=== PATIENT | female | born 1990 | race Caucasian/White ===

== ENCOUNTER 2020-05-28 07:51 | Inpatient (IN) | payer BC ==
[~2020-05-28 07:51] MED LIST: Bupivacaine 0.25% 10 ML SDV ONE
[2020-05-28] MEDS ORDERED: Sodium Chloride 0.9% 10 ML Syringe FLUSH PRN (08:07)
[2020-05-28] MEDS ORDERED: Nalbuphine 10 MG/ML Syringe IVPUSH PRN (08:07)
[2020-05-28] MEDS ORDERED: Oxytocin/Lactated Ringers 10 UNIT/1,000 ML BAG IV SCH ×2 (08:15)
[2020-05-28] MEDS ORDERED: ePHEDrine 50 MG/ML SDV IVPUSH PRN (09:55)
[2020-05-28] MEDS ORDERED: Ondansetron 4 MG/2 ML SDV IVPUSH PRN (09:55)
[2020-05-28] MEDS ORDERED: fentaNYL 100 MCG/2 ML SDV EPIDUR PRN (09:55)
[2020-05-28] MEDS ORDERED: Bupivacaine/fentaNYL/NS 100 ML Bag EPIDUR SCH (10:00)
--- NOTE | 2020-05-28 10:03 | PCM.PREANE ---
Preanesthetic Assessment - Procedure Proposed Procedure: MARYELLEN - Anesthesia/Transfusion/Family Hx Anesthesia History: Prior Anesthesia Without Reaction Family History of Anesthesia Reaction: No Transfusion History: No Prior Transfusion(s) Intubation History: Unknown - Review of Systems General: No Symptoms Pulmonary: No Symptoms Cardiovascular: No Symptoms Gastrointestinal: No Symptoms (GERD), Constipation, Nausea Neurological: No Symptoms Other: Reports: None - Physical Assessment NPO Status Date: 05/28/20 NPO Status Time: 04:30 Vital Signs: HR: 85 Sat: 97% Resp: 16 B/P: 124/79 Temp:36.9 Height: 1.7 m Weight: 88.451 kg ASA Class: 2 Mental Status: Alert & Oriented x3 Airway Class: Mallampati = 2 Dentition: Reports: Normal Dentition, Caries Thyro-Mental Finger Breadths: 3 Mouth Opening Finger Breadths: 3 ROM/Head Extension: Full Lungs: Clear to Auscultation, Normal Respiratory Effort Cardiovascular: Regular Rate, Regular Rhythm, No Murmurs - Lab Values: Laboratory Last Values WBC 10.82 K/mm3 (3.98-10.04) H 05/28/20 08:20 RBC 3.84 M/mm3 (3.98-5.22) L 05/28/20 08:20 Hgb 11.1 gm/dl (11.2-15.7) L 05/28/20 08:20 Hct 34.9 % (34.1-44.9) 05/28/20 08:20 MCV 90.9 fl (79.4-94.8) 05/28/20 08:20 MCH 28.9 pg (25.6-32.2) 05/28/20 08:20 MCHC 31.8 g/dl (32.2-35.5) L 05/28/20 08:20 RDW Std Deviation 43.8 fL (36.4-46.3) 05/28/20 08:20 Plt Count 295 K/mm3 (182-369) 05/28/20 08:20 MPV 11.8 fl (9.4-12.3) 05/28/20 08:20 Neut % (Auto) 74.2 % (34.0-71.1) H 05/28/20 08:20 Lymph % (Auto) 18.1 % (19.3-51.7) L 05/28/20 08:20 [place] % (Auto) 6.4 % (4.7-12.5) 05/28/20 08:20 Eos % (Auto) 0.8 (0.7-5.8) 05/28/20 08:20 Baso % (Auto) 0.2 % (0.1-1.2) 05/28/20 08:20 Neut # (Auto) 8.03 K/mm3 (1.56-6.13) H 05/28/20 08:20 Lymph # (Auto) 1.96 K/mm3 (1.18-3.74) 05/28/20 08:20 [place] # (Auto) 0.69 K/mm3 (0.24-0.36) H 05/28/20 08:20 Eos # (Auto) 0.09 K/mm3 (0.04-0.36) 05/28/20 08:20 Baso # (Auto) 0.02 K/mm3 (0.01-0.08) 05/28/20 08:20 Above labs reviewed and noted and within acceptable ranges to proceed with epidural if desired. - Allergies Allergies/Adverse Reactions: Allergies Allergy/AdvReac Type Severity Reaction Status Date / Time No Known Allergies Allergy Verified 05/28/20 09:22 - Anesthesia Plan Pre-Op Medication Ordered: None - Acknowledgements Anesthesia Type Planned: Epidural Pt an Appropriate Candidate for the Planned Anesthesia: Yes Alternatives and Risks of Anesthesia Discussed w Pt/Guardian: Yes Pt/Guardian Understands and Agrees with Anesthesia Plan: Yes PreAnesthesia Questionnaire - HOME MEDS Home Medications: Home Meds Ascorbate Calcium [Vitamin C] 500 mg PO DAILY 05/28/20 [History] Docusate Sodium [Colace] 100 mg PO DAILY 05/28/20 [History] Ferrous Sulfate [Iron] 325 mg PO DAILY 05/28/20 [History] L.acidoph,Paracasei, B.lactis [Probiotic] 1 each PO DAILY 05/28/20 [History] Loratadine 10 mg PO DAILY 05/28/20 [History] Omeprazole 20 mg PO DAILY 05/28/20 [History] Pnv No.95/Ferrous Fum/Folic AC [ Tablet] 1 tab PO DAILY 05/28/20 [History] - CURRENT (IN HOUSE) MEDS Current Meds: Current Medications Ephedrine Sulfate (Ephedrine Sulfate) 5 mg IVPUSH ASDIRECTED PRN PRN Reason: Hypotension Fentanyl (Sublimaze) 100 mcg EPIDUR Q3H PRN PRN Reason: Pain Fentanyl/Bupivacaine HCl (Fentanyl/Bupivacaine/Ns 2 Mcg-0.125% 100 Ml) 100 ml EPIDUR ASDIRECTED [place] Oxytocin/Lactated Ringer's (Pitocin In Lr 10 Units/1,000 Ml) 10 unit in 1,000 mls @ 12 mls/hr IV TITRATE [place]; Protocol Oxytocin/Lactated Ringer's (Pitocin In Lr 10 Units/1,000 Ml) 10 unit in 1,000 mls @ 100 mls/hr IV .CONTINUOUS [place] Lactated Ringer's (Ringers, Lactated) 1,000 mls @ 100 mls/hr IV ASDIRECTED [place] Miscellaneous Medication (Phenylephrine 1 Mg/10 Ml-Ns) 0 mg IVPUSH ONETIME ONE Stop: 05/28/20 09:56 Nalbuphine HCl (Nubain) 10 mg IVPUSH Q2H PRN PRN Reason: Pain Ondansetron HCl (Zofran) 4 mg IVPUSH ONETIME PRN PRN Reason: Nausea/Vomiting Sodium Chloride (Saline Flush) 10 ml FLUSH ASDIRECTED PRN PRN Reason: Keep Vein Open
[2020-05-28] MEDS: Lactated Ringers 1,000 ML IV SCH ×3 (11:15→15:05)
--- NOTE | 2020-05-28 11:50 | PCM.LDHP ---
L&D History of Present Illness - General Date of Service: 05/28/20 Admit Problem/Dx: Patient Status Order with Admit Dx/Problem 05/28/20 08:07 Patient Status [ADT] Routine Admission Diagnosis/Problem Admission Diagnosis/Problem 05/28/20 11:35 Emily is a 30-year-old 1 para 0 white female who is admitted on 05/28/2020 at 40-4/7 weeks gestational age for elective induction of labor. Source of Information: Patient History Limitations: Reports: No Limitations - History of Present Illness Introduction:: Emily is a 30-year-old 1 para 0 white female who is admitted on 05/28/2020 at 40-4/7 weeks gestational age for elective induction of labor. Procedure, risk, benefits, alternative care including allowing for natural onset of labor are discussed with patient. She appears to understand and wishes to proceed. In labor and delivery. Cervix is found to be 2 cm plus, 90% effaced, -1 station, mid position, vertex presentation, soft. AROM is accomplished with resultant clear amniotic fluid. heart tones are reassuring. Contractions are occurring every 3 to 5 minutes and are mild in nature. CASE BRIEFER history: 1 para 0. Last menstrual period was on 08/18/2019. Her CLARY of 05/24/2020 was set by an early ultrasound. This ultrasound was done elsewhere. Patient had menarche at approximately age 13. Cycles q. 28 days. No control at the time of conception. LMP 08/18/2019 gives a due date of 05/24/2020. course: Patient transferred her care to our clinic at approximately 37- 4/7 weeks gestational age. Been seen at [facility] prior to that time. Her vital signs have been stable. Her weight gain by her history was from 193 pounds up to 196 pounds. Fundal height growth has been appropriate. Patient has had an unremarkable course. She is desiring epidural for labor pain control. Laboratory testing shows blood to be O+ with a negative antibody screen. Her hemoglobin on 05/04/2020 was 13.3 g/dL and platelets are 319,000. She is rubella immune. RPR is nonreactive. Hepatitis B surface antigen is negative. Chlamydia and gonorrhea were both negative. Her 1 hour glucose tolerance test was normal at 105. Her last hemoglobin was 11.9 g/dL. Her group B strep screen was negative. Had back pain and constipation in . She had a flu vaccination on 05/01/[address] [facility]. She plans to breast- feed. Her Tdap was performed on 04/20/2020. Group B strep screen is negative. Patient is rubella immune. Allergies: None Medications: 1. Vitamin C 500 mg/day 2. Ferrous sulfate 325 mg/day 3. Omeprazole 20 mg p.o. daily as needed for nausea 4. vitamins daily 5. Probiotic oral capsules daily 6. Loratadine 10 mg p.o. daily as needed for allergies 7. Colace 100 mg p.o. every other day for constipation Past medical history: Unremarkable Past surgical history: 1. Laparoscopic cholecystectomy 2. Rhinoplasty 3. [place] teeth extraction Family history: Mother is alive and well. Father is alive but had a stroke 10 years ago secondary to an accident. She has 2 sisters that are alive and well. One brother is alive and well. Maternal grandmother is secondary to motor vehicle accident but did also have a history of breast cancer at an older age. Maternal grandfather is deceasedcause unknown. Paternal grandmother is alive with diabetes mellitus. Paternal grandfather is secondary to liver cancer. No bleeding, clotting, , asthma or anesthesia problems noted in the family. Social history: Patient is . is Ricardo. They live in [place], [place]. She does not use any significant also alcohol, drugs or tobacco. Review of systems: In general patient has no complaints. He has been active. Skin: Negative Lungs: No infectious symptoms or shortness of breath Cardiovascular: No chest pain or exercise intolerance Breasts: No lumps, changes in size, pain, dimpling, discharge or axillary or supraclavicular concerns. Changes associated with . GI: Negative : Body habitus changes associated with . Musculoskeletal: Negative Neurological: Negative Sickle exam: In general the patient is well-developed, well-nourished, pleasant female of stated age in no acute distress On last evaluation clinic her blood pressure was 110/70. Weight was 196 pounds. heart rate is 154. Fundal height was 40 cm. Skin is warm dry without lesions. HEENT, neck and back within normal limits. Lungs are clear with good breath sounds in all lung agustin. Cardiovascular exam shows regular and rhythm without murmurs. Abdomen is gravid with last fundal height in clinic at 40 cm. Baby in vertex presentation by Cipriano maneuvers. Genital per digital exam as as above.. Extremities and neurological exam are grossly within normal limits. No edema noted. - Related Data Allergies/Adverse Reactions: Allergies Allergy/AdvReac Type Severity Reaction Status Date / Time No Known Allergies Allergy Verified 05/28/20 09:22 Home Medications: Home Meds Ascorbate Calcium [Vitamin C] 500 mg PO DAILY 05/28/20 [History] Docusate Sodium [Colace] 100 mg PO DAILY 05/28/20 [History] Ferrous Sulfate [Iron] 325 mg PO DAILY 05/28/20 [History] L.acidoph,Paracasei, B.lactis [Probiotic] 1 each PO DAILY 05/28/20 [History] Loratadine 10 mg PO DAILY 05/28/20 [History] Omeprazole 20 mg PO DAILY 05/28/20 [History] Pnv No.95/Ferrous Fum/Folic AC [ Tablet] 1 tab PO DAILY 05/28/20 [History] Past Medical History Gastrointestinal History: Reports: GERD CASE BRIEFER History: Reports: - Past Surgical History GI Surgical History: Reports: None Social & Family History - Family History Family Medical History: Noncontributory - Tobacco Use Tobacco Use Status *Q: Never Tobacco User - Caffeine Use Caffeine Use: Reports: None - Recreational Drug Use Recreational Drug Use: No H&P Review of Systems - Review of Systems: Review Of Systems: See Below L&D Exam - Exam Exam: See Below - Vital Signs Vital Signs: Last Vital Signs Temp 36.9 C 05/28/20 08:17 Pulse 85 05/28/20 08:17 Resp 16 05/28/20 08:17 BP 124/79 05/28/20 08:17 Pulse Ox 97 05/28/20 08:17 Weight: 88.451 kg - Patient Data Lab Results Last 24 hrs: Laboratory Results - last 24 hr 05/28/20 05/28/20 Range/Units 08:20 08:45 WBC 10.82 H (3.98-10.04) K/mm3 RBC 3.84 L (3.98-5.22) M/mm3 Hgb 11.1 L (11.2-15.7) gm/dl Hct 34.9 (34.1-44.9) % MCV 90.9 (79.4-94.8) fl MCH 28.9 (25.6-32.2) pg MCHC 31.8 L (32.2-35.5) g/dl RDW Std Deviation 43.8 (36.4-46.3) fL Plt Count 295 (182-369) K/mm3 MPV 11.8 (9.4-12.3) fl Neut % (Auto) 74.2 H (34.0-71.1) % Lymph % (Auto) 18.1 L (19.3-51.7) % [place] % (Auto) 6.4 (4.7-12.5) % Eos % (Auto) 0.8 (0.7-5.8) Baso % (Auto) 0.2 (0.1-1.2) % Neut # (Auto) 8.03 H (1.56-6.13) K/mm3 Lymph # (Auto) 1.96 (1.18-3.74) K/mm3 [place] # (Auto) 0.69 H (0.24-0.36) K/mm3 Eos # (Auto) 0.09 (0.04-0.36) K/mm3 Baso # (Auto) 0.02 (0.01-0.08) K/mm3 SARS-CoV-2 RNA (CALLIE) Negative (NEGATIVE) Result Diagrams: 05/28/20 08:20 Problem List Initiated/Reviewed/Updated: Yes Orders Last 24hrs: Active Orders 24 hr Category Date Time Status Patient Status [ADT] Routine ADT 05/28/20 08:07 Active Activity as Tolerated [RC] PFP Care 05/28/20 08:07 Active Communication Order [RC] ASDIRECTED Care 05/28/20 08:07 Active Heart Tones [RC] ASDIRECTED Care 05/28/20 08:08 Active Non Stress Test [RC] PER UNIT ROUTINE Care 05/28/20 08:07 Active Notify Provider [RC] ASDIRECTED Care 05/28/20 09:55 Active Notify Provider [RC] PFP Care 05/28/20 08:07 Active Notify Provider [RC] PRN Care 05/28/20 08:07 Active Peripheral IV Care [RC] . DIRECTED Care 05/28/20 08:08 Active Pulse Oximetry [RC] ASDIRECTED Care 05/28/20 09:55 Active Pump Management, Intrathecal [RC] ASDIRECTED Care 05/28/20 08:09 Active Vital Signs [RC] PER UNIT ROUTINE Care 05/28/20 08:07 Active Regular Diet [DIET] Diet 05/28/20 Breakfast Active BLOOD BANK HOLD SPECIMEN [BBK] Stat Lab 05/28/20 08:07 Ordered RAPID PLASMA REAGIN,RPR [CHEM] Routine Lab 05/28/20 08:07 Ordered Bupivacaine/fentaNYL/NS [fentaNYL/Bupivacaine/NS 2 MCG- Med 05/28/20 10:00 Active 0.125% 100 ML] 100 ml EPIDUR ASDIRECTED Lactated Ringers [Ringers, Lactated] 1,000 ml Med 05/28/20 08:15 Active IV ASDIRECTED Nalbuphine [Nubain] Med 05/28/20 08:07 Active 10 mg IVPUSH Q2H PRN Ondansetron [Zofran] Med 05/28/20 09:55 Active 4 mg IVPUSH ONETIME PRN Oxytocin/Lactated Ringers [Pitocin in LR 10 Units/1,000 Med 05/28/20 08:15 Active ML] 10 unit in 1,000 ml IV .CONTINUOUS Oxytocin/Lactated Ringers [Pitocin in LR 10 Units/1,000 Med 05/28/20 08:15 A ctive ML] 10 unit in 1,000 ml IV TITRATE Sodium Chloride 0.9% [Saline Flush] Med 05/28/20 08:07 Active 10 ml FLUSH ASDIRECTED PRN ePHEDrine [ePHEDrine sulfate] Med 05/28/20 09:55 Active 5 mg IVPUSH ASDIRECTED PRN fentaNYL [Sublimaze] Med 05/28/20 09:55 Active 100 mcg EPIDUR Q3H PRN Electronic Heart Tones Ext w TOCO [WOMSER] Oth 05/28/20 08:07 Ordered Routine Electronic Heart Tones Internal [WOMSER] Per Unit Oth 05/28/20 08:07 Ordered Routine Peripheral IV Insertion Adult [OM.PC] Routine Oth 05/28/20 08:07 Ordered Resuscitation Status Routine Resus Stat 05/28/20 08:07 Ordered Medication Orders Ephedrine Sulfate (Ephedrine Sulfate) 5 mg IVPUSH ASDIRECTED PRN PRN Reason: Hypotension Fentanyl (Sublimaze) 100 mcg EPIDUR Q3H PRN PRN Reason: Pain Fentanyl/Bupivacaine HCl (Fentanyl/Bupivacaine/Ns 2 Mcg-0.125% 100 Ml) 100 ml EPIDUR ASDIRECTED [place] Oxytocin/Lactated Ringer's (Pitocin In Lr 10 Units/1,000 Ml) 10 unit in 1,000 mls @ 12 mls/hr IV TITRATE [place]; Protocol Oxytocin/Lactated Ringer's (Pitocin In Lr 10 Units/1,000 Ml) 10 unit in 1,000 mls @ 100 mls/hr IV .CONTINUOUS [place] Lactated Ringer's (Ringers, Lactated) 1,000 mls @ 100 mls/hr IV ASDIRECTED [place] Last Admin: 05/28/20 11:15 Dose: 100 mls/hr Documented by: BEHZAD Nalbuphine HCl (Nubain) 10 mg IVPUSH Q2H PRN PRN Reason: Pain Ondansetron HCl (Zofran) 4 mg IVPUSH ONETIME PRN PRN Reason: Nausea/Vomiting Sodium Chloride (Saline Flush) 10 ml FLUSH ASDIRECTED PRN PRN Reason: Keep Vein Open Assessment/Plan Comment:: 1. 40-4/7-week intrauterine with an CLARY of 05/24/2020 admitted for induction of labor 2. Group B strep negative. 3. Patient desires epidural in labor and delivery for analgesia 4. Patient plans to breast-feed 5. Rubella titer shows immunity 6. Patient received her Tdap on 04/20/2020 7. Relatively low risk Plan: 1. Artificial rupture of membranes induction of labor. Pitocin augmentation as indicated 2. Epidural as needed for analgesia 3. Anticipate normal spontaneous vaginal delivery 4. Routine labor care.
[2020-05-28] MEDS ORDERED: Lidocaine 1% 50 ML MDV ONE (21:34)
--- NOTE | 2020-05-28 22:06 | PCM.SN.2 ---
- Free Text/Narrative Note: Delivery note: Emily is a 30-year-old 1 para 0 white female who is admitted on 05/28/2020 at 40-4/7 weeks gestational age for elective induction of labor. Procedure, risk, benefits, alternative care including allowing for natural onset of labor are discussed with patient. She appears to understand and wishes to proceed. In labor and delivery. Cervix is found to be 2 cm plus, 90% effaced, -1 station, mid position, vertex presentation, soft. AROM is accomplished with resultant clear amniotic fluid. heart tones are reassuring. Contractions are occurring every 3 to 5 minutes and are mild in nature. Patient was monitored for 2 to 3 hours after which because of contractions are less than optimal, Pitocin was started and increased to a maximum of 4 milliunits/mL. With this she developed a strong contraction pattern. She made steady progress to complete cervical dilation by approximately 1970 hours on 05/28/2020. She had an epidural in place for labor analgesia. At 2126 hrs. she delivered a viable, cedillo, female infant with Apgars of 6 and 9, a weight of 4160 g (9 pounds 2.7 ounces), a length of 20.0 inches in a direct occiput anterior position. Baby was placed on mom's abdomen, nose and mouth were bulb suction. The cord is allowed to pulsate for approximately 3 minutes and was clamped x2 and cut by the baby's father. Dose was increased to 500 cc an hour to facilitate increase in uterine tone and decrease likelihood of bleeding. Patient was noted to have a bisulcus tear with 1/3 degree laceration. Third- degree laceration was repaired independently of the remainder of the laceration and was done so with 3-0 Monocryl suture reapproximating the ends of the anal sphincter muscle and reapproximating the capsule over the muscle. By sulcus laceration was repaired with 2 running sutures of 0 Monocryl. The remainder of the laceration was repaired in a routine episiotomy fashion. Lidocaine 1% 10 cc was used to further anesthetize the perineal area prior to repair. The placenta delivered in a Swartz presentation, appeared intact and complete. It was noted to have 2 lobes. It was discarded per patient desire. Patient plans to breast-feed. Estimated blood loss was 400 cc. Condition: Good.
[2020-05-28] MEDS ORDERED: Benzocaine/Menthol 20%-0.5% Spray 56 GM Canister TOP PRN (22:43)
[2020-05-28] MEDS ORDERED: Witch Hazel Medicated Pads 40/Jar TOP PRN (22:43)
[2020-05-28] MEDS: Ibuprofen 600 MG Tab PO PRN (23:35)
[2020-05-29] MEDS ORDERED: Ammonia Inhalant Amp ONE (00:39)
[2020-05-29] MEDS: Ibuprofen 600 MG Tab PO PRN ×4 (04:51→19:43)
--- NOTE | 2020-05-29 07:15 | PCM48HPAN ---
Post Anesthesia Note - EVALUATION WITHIN 48HRS OF ANESTHETIC Vital Signs in Normal Range: Yes Patient Participated in Evaluation: Yes Respiratory Function Stable: Yes Airway Patent: Yes Cardiovascular Function Stable: Yes Hydration Status Stable: Yes Pain Control Satisfactory: Yes Nausea and Vomiting Control Satisfactory: Yes Mental Status Recovered: Yes Vital Signs: Last Vital Signs Temp 98.2 F 05/29/20 02:52 Pulse 61 05/29/20 02:52 Resp 18 05/29/20 02:52 BP 113/78 05/29/20 02:52 Pulse Ox 97 05/29/20 02:52
[2020-05-29] MEDS: Prenatal Multivitamin with Calcium/Folic Acid/Iron Tab PO SCH (08:21)
[2020-05-29] MEDS: Docusate Sodium 100 MG Cap PO PRN (08:21)
--- NOTE | 2020-05-29 09:51 | PCM.SN.2 ---
- Free Text/Narrative Note: note: Patient is doing well in the period. Minimal lochia, voiding well, ambulated without problems. Nursing without concerns. Patient is afebrile, vital signs are stable Abdomen is flat, soft, uterus is below the umbilicus and is firm and nontender. Legs are nontender. Assessment: recovery going well. Plan: Routine care. Patient be discharged home within the next 24-48 hours.
[2020-05-30] MEDS: Acetaminophen 325 MG Tab PO PRN ×2 (02:20→13:15)
--- NOTE | 2020-05-30 06:43 | PCM.DCSUM1 ---
Discharge Summary - Hospital Course Free Text/Narrative:: Emily is a 30-year-old 1 para 1001 white female who is admitted on 05/28/2020 at 40-4/7 weeks gestational age for elective induction of labor. Procedure, risk, benefits, alternative care including allowing for natural onset of labor are discussed with patient. She appeared to understand and wished to proceed. In labor and delivery cervix was found to be 2 cm plus, 90% effaced, - 1 station, mid position, vertex presentation, soft. AROM was accomplished with resultant clear amniotic fluid. heart tones are reassuring. Contractions were occurring every 3 to 5 minutes and were mild in nature. Patient was monitored for 2 to 3 hours after which because of contractions are less than optimal, Pitocin was started and increased to a maximum of 4 milliunits/mL. With this she developed a strong contraction pattern. She made steady progress to complete cervical dilation by approximately 1970 hours on 05/28/2020. She had an epidural in place for labor analgesia. At 2126 hrs. on 05/28/2020 she delivered a viable, cedillo, female with Apgars of 6 and 9, a weight of 4160 g (9 pounds 2.7 ounces), a length of 20.0 inches in a direct occiput anterior position. Baby was placed on mom's abdomen, nose and mouth were bulb suction. The cord was allowed to pulsate for approximately 3 minutes and was clamped x2 and cut by the baby's father. Pitocin dosage was increased to 500 cc an hour to facilitate increase in uterine tone and decrease likelihood of bleeding. Patient was noted to have a bi-sulcus vaginal laceration with third degree perineal laceration. Third-degree laceration was repaired independently of the remainder of the laceration and was done so with 3-0 Monocryl suture reapproximating the ends of the anal sphincter muscle and reapproximating the capsule over the muscle. The bi-sulcus laceration was repaired with 2 running sutures of 0 Monocryl. The remainder of the laceration was repaired in a routine episiotomy fashion. Lidocaine 1% 10 cc was used to further anesthetize the perineal area prior to repair. The placenta delivered in a Swartz presentation, appeared intact and complete. It was noted to have 2 lobes. It was discarded per patient desire. Patient plans to breast-feed. Estimated blood loss was 400 cc. During the period patient has made good recovery. She still has some pelvic discomfort which she had prior to the labor onset. She also has some perineal discomfort secondary to the laceration. She is doing well however. She has minimal lochia, is voiding well, is ambulating without concerns and is nursing without problems. She is desiring discharge home. Condition: Good. Diagnosis: Stroke: No - Discharge Data Discharge Date: 05/30/20 Discharge Disposition: Home, Self-Care 01 Condition: Good - Referral to Home Health Primary Care Physician: PCP None - Patient Instructions Diet: Regular Diet as Tolerated (Nursing diet with increased calories and calcium as recommended) Activity: As Tolerated (No intercourse or tampons until bleeding resolves) Driving: May Drive Today Showering/Bathing: May Shower Showering/Bathing, Other: May take a bath Notify Provider of: Fever, Increased Pain, Swelling and Redness, Nausea and/or Vomiting - Discharge Plan Home Medications: Home Meds Ascorbate Calcium [Vitamin C] 500 mg PO DAILY 05/28/20 [History] Docusate Sodium [Colace] 100 mg PO DAILY 05/28/20 [History] Ferrous Sulfate [Iron] 325 mg PO DAILY 05/28/20 [History] L.acidoph,Paracasei, B.lactis [Probiotic] 1 each PO DAILY 05/28/20 [History] Loratadine 10 mg PO DAILY 05/28/20 [History] Pnv No.95/Ferrous Fum/Folic AC [ Tablet] 1 tab PO DAILY 05/28/20 [History] Acetaminophen [Tylenol] 650 mg PO Q4H PRN tablet 05/30/20 [Rx] Ibuprofen [Motrin] 600 mg PO Q4H PRN tablet 05/30/20 [Rx] witch Fernando [Tucks] 1 pad TOP ASDIRECTED PRN pad 05/30/20 [Rx] Referrals: William Mcdonough MD [Physician] - (Return to clinic[facility]. [facility] at [facility] in [place] or at [facility] in 2 to 4 weeks.) - Discharge Summary/Plan Comment DC Time >30 min.: No Discharge Summary/Plan Comment: Discharge instructions: 1. Discharge home 2. Diet, activity and follow-up discussed with patient. Recommend nursing diet with increased calories and calcium. 3. Precautions given concern increased pain, bleeding, temperature, signs/symptoms of DVT/PE. 4. Medications per home medication was printed, discussed with and given to the patient. 5. Return to clinic[facility]Dr. Jake [facility] or [facility] in [place] 2-4 weeks. Diagnosis: Term -delivered Condition: Good - Patient Data Vitals - Most Recent: Last Vital Signs Temp 36.6 C 05/29/20 20:17 Pulse 64 05/30/20 04:23 Resp 16 05/30/20 04:23 BP 114/83 05/30/20 04:23 Pulse Ox 98 05/30/20 04:23 Weight - Most Recent: 88.451 kg I&O - Last 24 hours: Intake & Output 05/29/20 05/29/20 05/30/20 14:59 22:59 06:59 Intake Total 120 0 Balance 120 0 Med Orders - Current: Current Medications Acetaminophen (Tylenol) 650 mg PO Q4H PRN PRN Reason: mild pain or fever Last Admin: 05/30/20 02:20 Dose: 650 mg Documented by: Benzocaine/Menthol (Dermoplast Pain Relief [place]) 0 gm TOP ASDIRECTED PRN PRN Reason: Perineal Comfort Measure Last Admin: 05/28/20 23:35 Dose: 1 can Documented by: Docusate Sodium (Colace) 100 mg PO BID PRN PRN Reason: Constipation Last Admin: 05/29/20 08:21 Dose: 100 mg Documented by: Ibuprofen (Motrin) 600 mg PO Q4H PRN PRN Reason: Mild pain or fever Last Admin: 05/29/20 19:43 Dose: 600 mg Documented by: Prenat Multivit/[place]/Iron/Folic Ac ( Plus Iron) 1 each PO DAILY [place] Last Admin: 05/29/20 08:21 Dose: 1 each Documented by: Do [place] ([facility]) 1 pad TOP ASDIRECTED PRN PRN Reason: Perineal Comfort Measure Last Admin: 05/28/20 23:35 Dose: 1 jar Documented by: Discontinued Medications Ammonia (Aromatic Spirit) (Ammonia Aromatic Inhalant) Confirm Administered Dose 1 ampule .ROUTE .STK-MED ONE Stop: 05/29/20 00:40 Last Admin: 05/29/20 04:52 Dose: 1 ampule Documented by: Bupivacaine HCl (Sensorcaine-Mpf 0.25%) 10 ml .ROUTE .STK-MED ONE Stop: 05/28/20 00:01 Ephedrine Sulfate (Ephedrine Sulfate) 5 mg IVPUSH ASDIRECTED PRN PRN Reason: Hypotension Fentanyl (Sublimaze) 100 mcg EPIDUR Q3H PRN PRN Reason: Pain Last Admin: 05/28/20 12:55 Dose: 100 mcg Documented by: Fentanyl/Bupivacaine HCl (Fentanyl/Bupivacaine/Ns 2 Mcg-0.125% 100 Ml) 100 ml EPIDUR ASDIRECTED [place] Last Admin: 05/28/20 12:55 Dose: 100 ml Documented by: Oxytocin/Lactated Ringer's (Pitocin In Lr 10 Units/1,000 Ml) 10 unit in 1,000 mls @ 12 mls/hr IV TITRATE [place]; Protocol Last Titration: 05/28/20 16:20 Dose: 4 munits/min, 24 mls/hr Documented by: Oxytocin/Lactated Ringer's (Pitocin In Lr 10 Units/1,000 Ml) 10 unit in 1,000 mls @ 100 mls/hr IV .CONTINUOUS [place] Lactated Ringer's (Ringers, Lactated) 1,000 mls @ 100 mls/hr IV ASDIRECTED [place] Last Admin: 05/28/20 15:05 Dose: 100 mls/hr Documented by: Lidocaine HCl (Xylocaine 1%) Confirm Administered Dose 50 ml .ROUTE .STK-MED ONE Stop: 05/28/20 21:35 Last Admin: 05/28/20 23:36 Dose: 50 ml Documented by: Miscellaneous Medication (Phenylephrine 1 Mg/10 Ml-Ns) 0 mg IVPUSH ONETIME ONE Stop: 05/28/20 09:56 Last Admin: 05/28/20 14:40 Dose: 1 mg Documented by: Nalbuphine HCl (Nubain) 10 mg IVPUSH Q2H PRN PRN Reason: Pain Ondansetron HCl (Zofran) 4 mg IVPUSH ONETIME PRN PRN Reason: Nausea/Vomiting Sodium Chloride (Saline Flush) 10 ml FLUSH ASDIRECTED PRN PRN Reason: Keep Vein Open
[2020-05-30] MEDS: Docusate Sodium 100 MG Cap PO PRN (07:41)
[2020-05-30] MEDS: Ibuprofen 600 MG Tab PO PRN (07:41)
[2020-05-30] MEDS: Prenatal Multivitamin with Calcium/Folic Acid/Iron Tab PO SCH (08:00)
== END 2020-05-30 14:15 | disposition home or self-care (01) | DRG 542 ==
LOC: JD.OB 07:51 → OBSVTOIN 21:26 → JD.OB 21:26
PROVIDERS: ADMIT Obstetrics & Gynecology; ATTEND Obstetrics & Gynecology
PROC: 0DQR0ZZ Repair Anal Sphincter, Open Approach (ICD-10-PCS; principal; 2020-05-28)
PROC: 10E0XZZ Delivery of Products of Conception, External Approach (ICD-10-PCS; principal; 2020-05-28)
PROC: 3E0R3BZ Introduction of Anesthetic Agent into Spinal Canal, Percutaneous Approach (ICD-10-PCS; principal; 2020-05-28)
PROC: 3E033VJ Introduction of Other Hormone into Peripheral Vein, Percutaneous Approach (ICD-10-PCS; principal; 2020-05-28)
PROC: 10907ZC Drainage of Amniotic Fluid, Therapeutic from Products of Conception, Via Natural or Artificial Opening (ICD-10-PCS; principal; 2020-05-28)
DX: O48.0 Post-term pregnancy (principal); Z3A.40 40 weeks gestation of pregnancy; Z37.0 Single live birth; Z90.49 Acquired absence of other specified parts of digestive tract; O70.20 Third degree perineal laceration during delivery, unspecified; Z20.828 Contact with and (suspected) exposure to other viral communicable diseases; O99.62 Diseases of the digestive system complicating childbirth; K21.9 Gastro-esophageal reflux disease without esophagitis
CPT/HCPCS: 01967; 36415; 51702; 59025; 59409; 85025; 86592; A9270-GY; J2001; J2370; J2590; J3010; J3490; J7120; U0002

== ENCOUNTER 2020-08-02 16:04 | Emergency (ER) | payer BC ==
[~2020-08-02 16:04] MED LIST changes: -Bupivacaine 0.25% 10 ML SDV ONE; +LORazepam 0.5 MG Tab PO SCH
--- NOTE | 2020-08-02 16:30 | EDM.PDOCBH ---
ED HPI GENERAL MEDICAL PROBLEM - General Chief Complaint: Behavioral/Psych Stated Complaint: DEPRESSION NEEDS FLUIDS Time Seen by Provider: 08/02/20 16:27 - History of Present Illness INITIAL COMMENTS - FREE TEXT/NARRATIVE: 30-year-old female presents the emergency room with depression anxiety and dehydration. Patient was on Zoloft however was only taking this for a couple of weeks up to 50 mg a day for the second week and this was stopped on Thursday. The Zoloft just was not seeming to help her. She was started on Lexapro 5 mg daily and today just started 10 mg daily. She is also been using some Xanax 0.5 mg twice a day usually for her anxiety. She has longstanding anxiety and was restarted on her Xanax as it worked for her in the past. Patient has not been eating or drinking anything the last couple of days and believes she is dehydrated. At this time the patient has no thoughts of hurting herself or anyone else. Chest Pain Score (Numeric/FACES): 1 - Related Data Allergies Allergy/AdvReac Type Severity Reaction Status Date / Time No Known Allergies Allergy Verified 08/02/20 16:20 Home Meds: Home Meds Ascorbate Calcium [Vitamin C] 500 mg PO DAILY 05/28/20 [History] L.acidoph,Paracasei, B.lactis [Probiotic] 1 each PO DAILY 05/28/20 [History] Loratadine 10 mg PO DAILY 05/28/20 [History] Pnv No.95/Ferrous Fum/Folic AC [ Tablet] 1 tab PO DAILY 05/28/20 [History] Acetaminophen [Tylenol] 650 mg PO Q4H PRN tablet 05/30/20 [Rx] Ibuprofen [Motrin] 600 mg PO Q4H PRN tablet 05/30/20 [Rx] ALPRAZolam [Xanax] 0.5 mg PO TID PRN 08/02/20 [History] Cannabidiol (Cbd) Extract [CBD Oil] 1 tab PO ASDIRECTED 08/02/20 [History] Cholecalciferol (Vitamin D3) [Vitamin D] 1,000 unit PO DAILY 08/02/20 [History] Citalopram [Citalopram HBr] 10 mg PO DAILY 08/02/20 [History] Cyanocobalamin (Vitamin B12) [Vitamin B12] 1,000 mcg PO DAILY 08/02/20 [History] LORazepam [Ativan] 0.5 mg PO Q8H PRN #20 tablet 08/02/20 [Rx] Past Medical History Gastrointestinal History: Reports: GERD 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: Psychiatric History: Reports: Anxiety, Depression, Other (See Below) Other Psychiatric History: PPD - Past Surgical History HEENT Surgical History: Reports: Naso-Sinus Surgery GI Surgical History: Reports: Cholecystectomy Social & Family History - Family History Family Medical History: No Pertinent Family History - Tobacco Use Tobacco Use Status *Q: Never Tobacco User - Caffeine Use Caffeine Use: Reports: None - Recreational Drug Use Recreational Drug Use: No ED ROS GENERAL - Review of Systems Review Of Systems: See Below Constitutional: Reports: No Symptoms HEENT: Reports: No Symptoms Respiratory: Reports: No Symptoms Cardiovascular: Reports: No Symptoms GI/Abdominal: Reports: Anorexia. Denies: Abdominal Pain, Constipation, Diarrhea, Nausea, Vomiting : Reports: No Symptoms Musculoskeletal: Reports: No Symptoms Skin: Reports: No Symptoms Neurological: Reports: No Symptoms Psychiatric: Reports: Anxiety, Depression. Denies: Suicidal Ideation ED EXAM, BEHAVIORAL HEALTH - Physical Exam Exam: See Below Exam Limited By: No Limitations General Appearance: Alert, No Apparent Distress Ears: Normal External Exam, Normal Canal, Hearing Grossly Normal, Normal TMs Nose: Normal Inspection, Normal Mucosa, No Blood Throat/Mouth: Normal Inspection, Normal Lips, Normal Teeth, Normal Gums, Normal Oropharynx, Normal Voice, No Airway Compromise Head: Atraumatic, Normocephalic Neck: Normal Inspection, Supple, Non-Tender, Full Range of Motion. No: Lymphadenopathy (L), Lymphadenopathy (R), Thyromegaly Respiratory/Chest: No Respiratory Distress, Lungs Clear, Normal Breath Sounds Cardiovascular: Regular Rate, Rhythm, No Edema, No Murmur GI/Abdominal: Normal Bowel Sounds, Soft, Non-Tender Back Exam: Normal Inspection. No: CVA Tenderness (L), CVA Tenderness (R) Extremities: Normal Inspection, Normal Range of Motion, Non-Tender Neurological: Alert, Normal Cognition Psychiatric: Alert, Normal Cognition, Other (She is mildly anxious). No: Flat Affect, Flight of Ideas, Homicidal Thoughts, Suicidal Thoughts, Paranoid Thoughts Skin Exam: Warm, Dry, Intact COURSE, BEHAVIORAL HEALTH COMP - Course Vital Signs: Last Vital Signs Temp 36.3 C 12/24/20 16:15 Pulse 67 08/02/20 16:15 Resp 16 08/02/20 16:15 BP 166/110 H 08/02/20 16:15 Pulse Ox 96 08/02/20 16:15 Orders, Labs, Meds: Laboratory Tests 08/02/20 08/02/20 Range/Units 16:30 16:30 WBC 9.35 (3.98-10.04) K/mm3 RBC 5.02 (3.98-5.22) M/mm3 Hgb 14.2 D (11.2-15.7) gm/dl Hct 44.9 (34.1-44.9) % MCV 89.4 (79.4-94.8) fl MCH 28.3 (25.6-32.2) pg MCHC 31.6 L (32.2-35.5) g/dl RDW Std Deviation 40.4 (36.4-46.3) fL Plt Count 369 (182-369) K/mm3 MPV 11.5 (9.4-12.3) fl Neut % (Auto) 72.5 H (34.0-71.1) % Lymph % (Auto) 21.4 (19.3-51.7) % [place] % (Auto) 5.6 (4.7-12.5) % Eos % (Auto) 0.2 L (0.7-5.8) Baso % (Auto) 0.2 (0.1-1.2) % Neut # (Auto) 6.78 H (1.56-6.13) K/mm3 Lymph # (Auto) 2.00 (1.18-3.74) K/mm3 [place] # (Auto) 0.52 H (0.24-0.36) K/mm3 Eos # (Auto) 0.02 L (0.04-0.36) K/mm3 Baso # (Auto) 0.02 (0.01-0.08) K/mm3 Sodium 137 (136-145) mEq/L Potassium 3.5 (3.5-5.1) mEq/L Chloride 102 (98-107) mEq/L Carbon Dioxide 26 (21-32) mEq/L Anion Gap 12.5 (5-15) BUN 9 (7-18) mg/dL Creatinine 1.0 (0.55-1.02) mg/dL Est Cr Clr Drug Dosing 79.99 mL/min Estimated GFR (MDRD) > 60 (>60) mL/min BUN/Creatinine Ratio 9.0 L (14-18) Glucose 96 (74-106) mg/dL Calcium 9.7 (8.5-10.1) mg/dL Total Bilirubin 0.8 (0.2-1.0) mg/dL AST 26 (15-37) U/L ALT 53 (14-59) U/L Alkaline Phosphatase 114 (46-116) U/L Total Protein 8.3 H (6.4-8.2) g/dl Albumin 4.3 (3.4-5.0) g/dl Globulin 4.0 gm/dL Albumin/Globulin Ratio 1.1 (1-2) TSH 3rd Generation 1.078 (0.358-3.74) uIU/mL Medications Discontinued Medications Generic Name Dose Route Start Last Admin Trade Name Freq PRN Reason Stop Dose Admin Lactated Ringer's Confirm 08/02/20 16:49 08/02/20 16:53 Ringers, Lactated Administered 08/02/20 16:50 Not Given Dose 1,000 mls @ as directed .ROUTE .STK-MED ONE Lactated Ringer's 1,000 mls @ 999 mls/hr 08/02/20 16:52 08/02/20 16:53 Ringers, Lactated IV 08/02/20 17:52 999 mls/hr .BOLUS ONE Administration Lorazepam 0.5 mg 08/02/20 17:19 08/02/20 17:31 Ativan PO 08/02/20 17:20 0.5 mg ONETIME ONE Administration Re-Assessment/Re-Exam: I had the opportunity to discuss case with Yaneth Slaughtere Natasha the patient is provider that is been managing this episode. And we both agree that the patient needs to continue on her current course with the Lexapro however I will change the Xanax to Ativan 0.5 mg every 6-8 hours as needed. Discharge vs Psych Eval/Treatment:: 08/02/20 18:36 Patient is doing better at this time still anxious but she would like to go home and I think is very reasonable. We will give her 10 Ativan 1 mg from the machine out the waiting room have her take 1 tablet every 8 hours at least for 24 hours and then she could try it as needed and see how she does. She will follow up with Yaneth Kaur on Thursday. Departure - Departure Time of Disposition: 18:41 Disposition: Home, Self-Care 01 Clinical Impression: Anxiety, Post depression - Discharge Information Prescriptions: LORazepam [Ativan] 0.5 mg PO Q8H PRN #20 tablet PRN Reason: Anxiety Referrals: Yaneth Kaur, INSULATION BATTING MACHINE OPERATOR [Primary Care Provider] - Forms: ED Department Discharge Additional Instructions: Return to the emergency room with any questions problems or worsening symptoms. Return immediately if you think you are getting be a threat to yourself or someone around you. Follow-up with Yaneth Kaur on Thursday, you may also call her over the weekend if you have any questions. Take the Ativan 0.5 mg every 8 hours take 1 tonight at bedtime and then every 8 hours tomorrow and then as needed every 8 hours starting Thursday. You are given a handwritten prescription to get filled on Thursday. We are giving you 5/2 mg tablets from the hospital to carry you over until Thursday morning. Sepsis Event Note (ED) - Evaluation Sepsis Screening Result: No Definite Risk - Focused Exam Vital Signs: Vital Signs Temp Pulse Resp BP Pulse Ox 08/02/20 16:15 36.3 C 67 16 166/110 H 96
[2020-08-02] MEDS ORDERED: Lactated Ringers 1,000 ML ONE (16:49)
[2020-08-02] MEDS ORDERED: Lactated Ringers 1,000 ML IV ONE (16:52)
[2020-08-02] MEDS ORDERED: LORazepam 0.5 MG Tab PO ONE (17:19)
== END 2020-08-02 20:03 | disposition home or self-care (01) ==
LOC: JD.ED 16:04
DX: O99.345 Other mental disorders complicating the puerperium (principal); F53.0 Postpartum depression; F41.9 Anxiety disorder, unspecified; Z79.899 Other long term (current) drug therapy
CPT/HCPCS: 36415; 80053; 84443; 85025; 99284; A9270; J7120

== ENCOUNTER 2022-05-10 09:48 | Inpatient (IN) | payer BC ==
[2022-05-10] MEDS ORDERED: Sodium Chloride 0.9% 10 ML Syringe FLUSH PRN (10:08)
[2022-05-10] MEDS ORDERED: Nalbuphine HCl 10 MG/ 1ML Amp IVPUSH PRN (10:08)
[2022-05-10] MEDS ORDERED: Ondansetron 4 MG/2 ML SDV IVPUSH PRN (10:08)
[2022-05-10] MEDS ORDERED: Methylergonovine 0.2 MG/1 ML Amp IM PRN (10:08)
[2022-05-10] MEDS ORDERED: Oxytocin/Lactated Ringers 10 UNIT/1,000 ML BAG IV SCH (10:15)
[2022-05-10] MEDS: Lactated Ringers 1,000 ML IV SCH ×2 (10:50→11:25)
[2022-05-10] MEDS ORDERED: Bupivacaine/fentaNYL/NS 100 ML Bag EPIDUR PRN (11:09)
[2022-05-10] MEDS ORDERED: diphenhydrAMINE 50 MG/ML SDV IVPUSH PRN (11:09)
[2022-05-10] MEDS ORDERED: ePHEDrine 50 MG/ML SDV IVPUSH PRN (11:09)
[2022-05-10] MEDS ORDERED: fentaNYL 100 MCG/2 ML SDV EPIDUR PRN (11:09)
[2022-05-10] MEDS ORDERED: Bupivacaine 0.25% 10 ML SDV ONE (11:10)
[2022-05-10] MEDS ORDERED: Misoprostol 200 MCG Tab ONE (15:10)
[2022-05-10] MEDS ORDERED: Misoprostol 200 MCG Tab PO STA (15:26)
[2022-05-10] MEDS ORDERED: Ibuprofen 600 MG Tab PO PRN (17:44)
[2022-05-10] MEDS ORDERED: Benzocaine/Menthol 20%-0.5% Spray 78 GM Cannister TOP PRN (17:45)
[2022-05-10] MEDS: Witch Hazel Medicated Pads 40/Jar TOP PRN (18:10)
[2022-05-10] MEDS ORDERED: Sodium Chloride 0.9% 10 ML Syringe FLUSH SCH (21:00)
[2022-05-10] MEDS: Acetaminophen 325 MG Tab PO PRN (21:32)
[2022-05-11] MEDS: Ibuprofen 600 MG Tab PO PRN ×4 (00:29→22:58)
[2022-05-11] MEDS: Acetaminophen 325 MG Tab PO PRN ×3 (03:02→19:27)
[2022-05-11] MEDS: Docusate Sodium 100 MG Cap PO SCH ×2 (09:04→22:58)
[2022-05-11] MEDS: Witch Hazel Medicated Pads 40/Jar TOP PRN (19:27)
== END 2022-05-12 11:07 | disposition home or self-care (01) | DRG 560 ==
LOC: JD.OBCHECK 09:48 → JD.OB 10:00 → UNDOADMOB 10:09 → JD.OBCHECK 10:09 → JD.OB 10:09 → OBSVTOIN 15:00 → INTOOBSV 15:00 → JD.OB 15:01 → UNDOADMOB 19:00 → JD.OB 19:00 → JD.ZCENSUS 19:01 → JD.OB 19:01 → JD.ZCENSUS 05-12 12:37 → JD.OB 05-12 12:37
PROVIDERS: ADMIT Obstetrics & Gynecology; ATTEND Obstetrics & Gynecology
PROC: 10E0XZZ Delivery of Products of Conception, External Approach (ICD-10-PCS; principal; 2022-05-10)
PROC: 0KQM0ZZ Repair Perineum Muscle, Open Approach (ICD-10-PCS; 2022-05-10)
PROC: 3E0R3BZ Introduction of Anesthetic Agent into Spinal Canal, Percutaneous Approach (ICD-10-PCS; 2022-05-10)
PROC: 00HU33Z Insertion of Infusion Device into Spinal Canal, Percutaneous Approach (ICD-10-PCS; 2022-05-10)
DX: O66.0 Obstructed labor due to shoulder dystocia (principal); Z37.0 Single live birth; Z3A.40 40 weeks gestation of pregnancy; O99.62 Diseases of the digestive system complicating childbirth; K21.9 Gastro-esophageal reflux disease without esophagitis; O99.344 Other mental disorders complicating childbirth; F41.9 Anxiety disorder, unspecified; F32.A Depression, unspecified; O70.1 Second degree perineal laceration during delivery; O99.214 Obesity complicating childbirth
CPT/HCPCS: 01967; 36415; 51702; 59025; 59409; 85027; 86592; 86850; 86900; 86901; A9270-GY; J2210; J3010; J3490; J7120